=== PATIENT | female | born 1980 | race Caucasian/White ===

== ENCOUNTER 2025-10-01 18:14 | Emergency (ER) | payer BC, SELFPAY ==
[2025-10-01] VITALS (33 sets, daily range): BP systolic 107–154; BP diastolic 67–89; PULSE 72–112; RESP 14–34; TEMP 36.6–37.1; O2SAT 81–99
--- NOTE | 2025-10-01 18:15 | RT.EKG_ITS ---
APPROVED REPORT Exam: Resting ECG Reason for Exam: chest pin Patient Location: E HR:95 bpm ECG Measurements Heart Rate 95 AXIS AK 135 P 41 QRSd 99 QRS 68 QT 349 T 20 QTc 439 Conclusion Sinus rhythm...normal P axis, V-rate 60- 99 No STEMI
[2025-10-01 18:54] LABS: Abs Immature Grans 0.02 10^3/uL (0.0-0.06); HCT 39.5 % (36.0-46.0); HGB 13.0 g/dL (11.2-15.7); Immature Grans % 0.2 %; MCH 27.6 pg (27.0-33.0); MCHC 32.9 % (32.0-36.0); MCV 84 fL (80-95); MPV 9.1 fL (8.0-11.0); Platelet Count 306 10^3/uL (130-400); RBC 4.71 10^6/uL (3.93-5.22); RDW 13.1 % (11.7-14.6); RDW-SD 40.4 fL; WBC 8.40 10^3/uL (4.4-10.8)
[2025-10-01] MEDS: ACETAMINOPHEN 1,000 MG/100 ML BAG 400 MG IVPB (19:09)
[2025-10-01] MEDS: Normal Saline 1,000 ML 1000 ML IV (19:09)
[2025-10-01] MEDS: Ondansetron 4 MG/2 ML VIAL IVP ×2 (19:10→21:53)
[2025-10-01 19:18] LABS: HCG Qual (Serum) Negative
[2025-10-01 19:22] LABS: Lipase 31 U/L (<53); Magnesium 1.8 mg/dL (1.6-2.6)
[2025-10-01 19:23] LABS: ALT 28 U/L (10-49); AST 20 U/L (<34); Albumin 4.4 g/dL (3.2-5.0); Alkaline Phosphatase 84 U/L (46-116); Anion Gap 9.6 mmol/L (3-11); BUN 16 mg/dL (9-23); Bilirubin, Total 0.6 mg/dL (0.2-1.2); CO2 24.4 mmol/L (20.0-31.0); Calcium 8.8 mg/dL (8.3-10.6); Chloride 106 mmol/L (98-107); D-Dimer 548 ng/mlFEU (<500); Glucose 116 mg/dL (74-106); Potassium 3.7 mmol/L (3.5-5.1); Sodium 140 mmol/L (136-145); Total Protein 7.5 g/dL (5.7-8.2)
[2025-10-01 19:25] LABS: Troponin I < 3 ng/L (<35)
[2025-10-01 19:32] LABS: COVID-19 PCR Negative (Negative); RSV PCR Negative (Negative)
--- NOTE | 2025-10-01 19:53 | DI.RAD_ITS ---
Exam(s) XR PORTABLE CHEST AP EXAM: XR PORTABLE CHEST AP CLINICAL HISTORY: chest pain TECHNIQUE: 2D digital imaging was performed. COMPARISON: No exams were available for comparison FINDINGS: LUNGS: Clear. No pleural abnormality seen. HEART: Normal size. AORTA: Normal diameter. BONES: Unremarkable for age. Soft tissues: Unremarkable. IMPRESSION: No acute findings. The preliminary [facility] report was reviewed. DATA REPOSITORY: RADIATION DOSE DELIVERED:
--- NOTE | 2025-10-01 20:00 | DI.[facility]AD_ITS ---
PROCEDURE INFORMATION: Exam: XR Chest Exam date and time: 10/01/2025 19:32 Age: 44 years old Clinical indication: Chest pressure; Chest pain TECHNIQUE: Imaging protocol: Radiologic exam of the chest. Views: 1 view. COMPARISON: No relevant prior studies available. FINDINGS: Lungs: No consolidation. Pleural spaces: No pleural effusion. No pneumothorax. Heart/Mediastinum: No cardiomegaly. Bones/joints: No acute fracture. IMPRESSION: Negative portable chest. Dictated and Authenticated by: Ellyn Anguiano MD. Orderin Amarilis Zarate MD
--- NOTE | 2025-10-01 20:07 | ED.GENADUL_ITS ---
Discharge Plan Disposition Patient Disposition: Home Discharge Details Clinical Impression: Nausea and vomiting, Atypical chest pain, Thyroid nodule Primary Care Provider: Sera,Local ED Provider: Elliot Olmos Home Meds and New Rx's Prescriptions: New ondansetron 4 mg tablet,disintegrating 4 mg PO Q6H PRNQty: 20 0RF No Action lisinopril 20 mg tablet 20 mg PO DAILY fluticasone propionate 110 mcg/actuation HFA aerosol inhaler 2 inh inhalation DAILY AM Discharge Instructions Instructions: Thyroid nodules, Chest Pain, Adult ED, Nausea and Vomiting, Adult ED Additional Instructions: Please follow-up with your primary care provider regarding your visit to the emergency department today. Be sure to discuss results of all test performed here today to include radiology, and laboratory testing as well as results for any pending cultures. Of note, it was incidentally noted that your thyroid had to very small nodules which statistically are unlikely to represent any significant pathology however would recommend following up with your doctor to discuss if any future surveillance is indicated. Should your symptoms worsen, or if you develop new concerning symptoms, please return immediately emergency department for further evaluation. Stand Alone Forms: Portal Information HPI General Date/Time Provider Initiated Documentation: 10/01/25 18:23 . HPI Narrative: MDM/Narrative: 44-year-old female presents for evaluation of chest pain rating to the back with associated nausea and vomiting times today. Vital signs are notable for tachycardia, physical exam is otherwise unremarkable. Given tachycardia with chest pain rating to back concern for both PE and aortic pathology, less likely ACS given atypical presentation. However patient lacks risk factors for the significant disease processes so we will also consider other possible causes of chest pain such as pneumothorax, pneumonia, viral syndrome. Will obtain screening labs, EKG and negative D-dimer is positive for CAT scan. ED course: Screening labs are unremarkable other than a D-dimer which is elevated, will obtain CT of the chest abdomen pelvis for further evaluation CT imaging was unremarkable, patient notes significant improvement following ministration of fluids and Zofran, heart rate is now normalized, no significant complaints at this time will discharge prescription for Zofran and encouragement to follow-up with primary care. Disposition: Home HPI: 44-year-old female past medical history of hypertension, presents evaluation of chest pain with associated vomiting which began today. Patient states that she felt somewhat nauseous while going shopping with her and when she entered the supermarket she had to run back to the car and vomit. Since then she has noted chest pain which radiates to her back, denies any associated shortness of breath, fever, chills, abdominal pain or any other new or concerning symptoms. ROS: Negative besides as mentioned above Exam: Gen: A&O NAD HEENT: NCAT, EOMI, not icteric. External ears normal. No rhinorrhea. Moist mucous membranes. Neck: Supple, full range of motion, no observable masses, No meningeal sign. Lungs: No Respiratory distress. CV: RRR, no edema. Abdomen: Soft, nondistended, No rebound tenderness. MSK: No joint swelling, no redness. Skin: No rashes, petechiae, lesions. Normal color per patient. Neuro: Normal Gait, Grossly intact. Psych: Appropriate for situation. Rhythm: NSR Rate: 95 [place]: Normal axis Intervals: Normal intervals Other findings: No acute ST segment or T wave changes to suggest acute ischemia. Labs: Laboratory Tests Range/Units 10/01/25 10/01/25 10/01/25 18:37 18:45 19:51 WBC (4.4-10.8) 10^3/uL 8.40 RBC (3.93-5.22) 10^6/uL 4.71 Hgb (11.2-15.7) g/dL 13.0 Hct (36.0-46.0) % 39.5 MCV (80-95) fL 84 MCH (27.0-33.0) pg 27.6 MCHC (32.0-36.0) % 32.9 RDW (11.7-14.6) % 13.1 Plt Count (130-400) 10^3/uL 306 MPV (8.0-11.0) fL 9.1 Immature Gran % % 0.2 Neutrophils % % 83.8 Lymphocytes % % 8.9 Monocytes % % 4.5 Eosinophils % % 2.4 Basophils % % 0.2 Nucleated RBC % (0.0-0.3) % 0.0 Absolute Neutrophils (1.2-6.7) 10^3/uL 7.03 H Absolute Lymphocytes (1.2-3.4) 10^3/uL 0.75 L Absolute Monocytes (0.1-0.8) 10^3/uL 0.38 Absolute Eosinophils (0.0-0.7) 10^3/uL 0.20 Absolute Basophils (0.0-0.2) 10^3/uL 0.02 D-Dimer (<500) ng/mlFEU 548 H VBG Lactate (<or=2.0) mmol/L 1.1 Sodium (136-145) mmol/L 140 Potassium (3.5-5.1) mmol/L 3.7 Chloride (98-107) mmol/L 106 Carbon Dioxide (20.0-31.0) mmol/L 24.4 Anion Gap (3-11) mmol/L 9.6 BUN (9-23) mg/dL 16 Creatinine (0.55-1.02) mg/dL 0.77 Est GFR (CKD-EPI 2020) (mL/min/1.73m2) 81.06 Glucose (74-106) mg/dL 116 H Calcium (8.3-10.6) mg/dL 8.8 Magnesium (1.6-2.6) mg/dL 1.8 Total Bilirubin (0.2-1.2) mg/dL 0.6 AST (<34) U/L 20 ALT (10-49) U/L 28 Alkaline Phosphatase (46-116) U/L 84 Troponin I (<35) ng/L < 3 < 3 NT-Pro-B Natriuret Pep (<300) pg/mL < 35 Total Protein (5.7-8.2) g/dL 7.5 Albumin (3.2-5.0) g/dL 4.4 Lipase (<53) U/L 31 Serum HCG, Qual Negative Urine Color (Yellow) Urine Clarity (Clear) Urine pH (5-8) Ur Specific [place] (1.005-1.025) Urine Protein (Neg-Trace) mg/dL Urine Ketones (Negative) mg/dL Urine Blood (Negative) Urine Nitrite (Negative) Urine Bilirubin (Negative) Urine Urobilinogen (Up to 0.2) mg/dL Ur Leukocyte Esterase (Negative) Urine Glucose (Negative) mg/dL COVID-19 Source Nasopharynx SARS-CoV-2 (PCR) (Negative) Negative Influenza Type A (PCR) (Negative) Negative Influenza Type B (PCR) (Negative) Negative RSV (PCR) (Negative) Negative Range/Units 10/01/25 20:03 WBC (4.4-10.8) 10^3/uL RBC (3.93-5.22) 10^6/uL Hgb (11.2-15.7) g/dL Hct (36.0-46.0) % MCV (80-95) fL MCH (27.0-33.0) pg MCHC (32.0-36.0) % RDW (11.7-14.6) % Plt Count (130-400) 10^3/uL MPV (8.0-11.0) fL Immature Gran % % Neutrophils % % Lymphocytes % % Monocytes % % Eosinophils % % Basophils % % Nucleated RBC % (0.0-0.3) % Absolute Neutrophils (1.2-6.7) 10^3/uL Absolute Lymphocytes (1.2-3.4) 10^3/uL Absolute Monocytes (0.1-0.8) 10^3/uL Absolute Eosinophils (0.0-0.7) 10^3/uL Absolute Basophils (0.0-0.2) 10^3/uL D-Dimer (<500) ng/mlFEU VBG Lactate (<or=2.0) mmol/L Sodium (136-145) mmol/L Potassium (3.5-5.1) mmol/L Chloride (98-107) mmol/L Carbon Dioxide (20.0-31.0) mmol/L Anion Gap (3-11) mmol/L BUN (9-23) mg/dL Creatinine (0.55-1.02) mg/dL Est GFR (CKD-EPI 2020) (mL/min/1.73m2) Glucose (74-106) mg/dL Calcium (8.3-10.6) mg/dL Magnesium (1.6-2.6) mg/dL Total Bilirubin (0.2-1.2) mg/dL AST (<34) U/L ALT (10-49) U/L Alkaline Phosphatase (46-116) U/L Troponin I (<35) ng/L NT-Pro-B Natriuret Pep (<300) pg/mL Total Protein (5.7-8.2) g/dL Albumin (3.2-5.0) g/dL Lipase (<53) U/L Serum HCG, Qual Urine Color (Yellow) Yellow Urine Clarity (Clear) Clear Urine pH (5-8) 5.5 Ur Specific Hunter (1.005-1.025) 1.025 Urine Protein (Neg-Trace) mg/dL Negative Urine Ketones (Negative) mg/dL 15 H Urine Blood (Negative) Negative Urine Nitrite (Negative) Negative Urine Bilirubin (Negative) Negative Urine Urobilinogen (Up to 0.2) mg/dL 0.2 Ur Leukocyte Esterase (Negative) Negative Urine Glucose (Negative) mg/dL Negative COVID-19 Source SARS-CoV-2 (PCR) (Negative) Influenza Type A (PCR) (Negative) Influenza Type B (PCR) (Negative) RSV (PCR) (Negative) Radiology: PROCEDURE INFORMATION: Exam: XR Chest Exam date and time: 10/01/2025 19:32 Age: 44 years old Clinical indication: Chest pressure; Chest pain TECHNIQUE: Imaging protocol: Radiologic exam of the chest. Views: 1 view. COMPARISON: No relevant prior studies available. FINDINGS: Lungs: No consolidation. Pleural spaces: No pleural effusion. No pneumothorax. Heart/Mediastinum: No cardiomegaly. Bones/joints: No acute fracture. IMPRESSION: Negative portable chest. Thank you for allowing us to participate in the care of your patient. Dictated and Authenticated by: Ellyn Anguiano MD PROCEDURE INFORMATION: Exam: CTA Chest With Contrast CTA Abdomen and Pelvis With Contrast Exam date and time: 10/01/2025 20:56 Age: 44 years old Clinical indication: Chest pressure; Prior surgery; Surgery date: 6+ months; Surgery type: Hysterectomy; D-dimer +, cp and back pain TECHNIQUE: Imaging protocol: Computed tomographic angiography of the chest with contrast. Exam focused on the arteries. Computed tomographic angiography of the abdomen and pelvis with contrast. Exam focused on the arteries. 3D rendering (Not supervised by radiologist): MIP and/or 3D reconstructed images were created by the technologist. Radiation optimization: All CT scans at this facility use at least one of these dose optimization techniques: automated exposure control; mA and/or kV adjustment per patient size (includes targeted exams where dose is matched to clinical indication); or iterative reconstruction. Contrast material: [id number]; Contrast volume: 100 ml; Contrast route: INTRAVENOUS (IV); COMPARISON: CR XR PORTABLE CHEST AP 10/01/2025 19:32 FINDINGS: VASCULATURE: Pulmonary arteries: No pulmonary emboli. Aorta: No aortic aneurysm. No aortic dissection. Celiac and mesenteric arteries: No occlusion or significant stenosis. Renal arteries: No occlusion or significant stenosis. Right iliac arteries: No occlusion or significant stenosis. OMAROSORIO Preliminary Radiology Report KENNEL OPERATOR (QA) DISCREPANCY? If there is a discrepancy between the preliminary and final interpretation, kristie reed notify [employer] via [email or web address]. If you do not have access to our QA portal, call our QA team at [phone] CONFIDENTIALITY STATEMENT This report is intended only for the use of the referring physician, and only in accordance with law, If you received this in error, call [phone] Page 2 of 2 Left iliac arteries: No occlusion or significant stenosis. Thyroid: Subcentimeter bilateral thyroid nodules are statistically likely benign. CHEST: Trachea: Minimal scattered air trapping in the lungs may reflect small airways disease. Lungs: No airspace consolidation. Pleural spaces: No pneumothorax. No pleural effusion. Heart: No cardiomegaly. No pericardial effusion. ABDOMEN AND PELVIS: Liver: Fatty liver with no mass lesions. Gallbladder and biliary ducts: Cholecystectomy. No significant biliary dilation or radiopaque stones in the biliary tree. Pancreas: No mass. No ductal dilation. Spleen: No splenomegaly. Adrenal glands: No mass. Kidneys and ureters: No solid mass. No hydronephrosis. Stomach and bowel: No obstruction. No mucosal thickening. Appendix: No evidence of appendicitis. Intraperitoneal space: No free air. No significant fluid collection. Urinary bladder: No mass. Reproductive: Hysterectomy. Lymph nodes: No enlarged lymph nodes. Bones/joints: No acute fracture or subluxation. Soft tissues: Prominent subcutaneous fat. IMPRESSION: 1. No acute findings. 2. Incidental findings as described. Thank you for allowing us to participate in the care of your patient. Dictated and Authenticated by: Ellyn Anguiano MD Related Data Home Medications ?Medication ?Instructions ?Recorded ?Confirmed fluticasone propionate 110 2 inh inhalation DAILY AM 1 12/02/24 10/01/25 mcg/actuation HFA aerosol inhaler lisinopril 20 mg tablet 20 mg PO DAILY 10/01/2509/20 ondansetron 4 mg disintegrating 4 mg PO Q6H PRN #20 ta bs 10/01/25 tablet Previous Rx's ?Medication ?Instructions ?Recorded ondansetron 4 mg disintegrating 4 mg PO Q6H PRN #20 ta bs 10/01/25 tablet Allergies Allergy/AdvReac Type Severity Reaction Status Date / Time Sulfa (Sulfonamide Allergy Severe Anaphylaxis Verified 10/01/25 18:20 Antibiotics) Penicillins AdvReac Intermediate Psychosis Verified 10/01/25 18:20 General Stated Complaint: Chest Pain ESTER: 3 Course Vital Signs Vital signs: Vital Signs Temperature 36.6 C 10/01/25 18:16 Pulse 102 H 10/01/25 18:16 Respiratory Rate 17 10/01/25 18:16 Blood Pressure 121/88 10/01/25 18:16 Pulse Oximetry 97 10/01/25 18:16 Temperature 36.6 C 10/01/25 18:16 Temperature Source Skin 10/01/25 18:16 Pulse 94 H 10/01/25 20:00 Pulse 93 H 10/01/25 20:00 Respiratory Rate 20 10/01/25 20:00 Respiratory Effort Normal, Non-Labored 10/01/25 18:41 Respiratory Depth Normal 10/01/25 18:41 Respiratory Pattern Normal 10/01/25 18:41 Blood Pressure 120/71 10/01/25 20:00 Blood Pressure Mean 89 10/01/25 20:00 Blood Pressure Position Sitting 10/01/25 18:16 Pulse Oximetry 97 10/01/25 20:00 Oxygen Delivery Method Room Air 10/01/25 18:16 Oxygen Flow Rate 0 10/01/25 18:16 Pain Level 5 10/01/25 18:16 Lab/Test Results Lab/Test Results: Laboratory Tests Range/Units 10/01/25 10/01/25 18:37 18:45 WBC (4.4-10.8) 10^3/uL 8.40 RBC (3.93-5.22) 10^6/uL 4.71 Hgb (11.2-15.7) g/dL 13.0 Hct (36.0-46.0) % 39.5 MCV (80-95) fL 84 MCH (27.0-33.0) pg 27.6 MCHC (32.0-36.0) % 32.9 RDW (11.7-14.6) % 13.1 Plt Count (130-400) 10^3/uL 306 MPV (8.0-11.0) fL 9.1 Immature Gran % % 0.2 Neutrophils % % 83.8 Lymphocytes % % 8.9 Monocytes % % 4.5 Eosinophils % % 2.4 Basophils % % 0.2 Nucleated RBC % (0.0-0.3) % 0.0 Absolute Neutrophils (1.2-6.7) 10^3/uL 7.03 H Absolute Lymphocytes (1.2-3.4) 10^3/uL 0.75 L Absolute Monocytes (0.1-0.8) 10^3/uL 0.38 Absolute Eosinophils (0.0-0.7) 10^3/uL 0.20 Absolute Basophils (0.0-0.2) 10^3/uL 0.02 D-Dimer (<500) ng/mlFEU 548 H VBG Lactate (<or=2.0) mmol/L 1.1 Sodium (136-145) mmol/L 140 Potassium (3.5-5.1) mmol/L 3.7 Chloride (98-107) mmol/L 106 Carbon Dioxide (20.0-31.0) mmol/L 24.4 Anion Gap (3-11) mmol/L 9.6 BUN (9-23) mg/dL 16 Creatinine (0.55-1.02) mg/dL 0.77 Est GFR (CKD-EPI 2020) (mL/min/1.73m2) 81.06 Glucose (74-106) mg/dL 116 H Calcium (8.3-10.6) mg/dL 8.8 Magnesium (1.6-2.6) mg/dL 1.8 Total Bilirubin (0.2-1.2) mg/dL 0.6 AST (<34) U/L 20 ALT (10-49) U/L 28 Alkaline Phosphatase (46-116) U/L 84 Troponin I (<35) ng/L < 3 NT-Pro-B Natriuret Pep (<300) pg/mL < 35 Total Protein (5.7-8.2) g/dL 7.5 Albumin (3.2-5.0) g/dL 4.4 Lipase (<53) U/L 31 Serum HCG, Qual Negative COVID-19 Source Nasopharynx SARS-CoV-2 (PCR) (Negative) Negative Influenza Type A (PCR) (Negative) Negative Influenza Type B (PCR) (Negative) Negative RSV (PCR) (Negative) Negative PFSH All Active Problems (Updated 10/01/25 @ 23:20 by Elliot Olmos MD) Thyroid nodule (Acute) Atypical chest pain (Acute) Nausea and vomiting (Acute) Social History Smoking/Tobacco Use Status: Never Smoking risk assessment performed?: Yes Alcohol Intake: current Alcohol Intake frequency: a few times a month Drug use: Never Substance use type: does not use Do you feel safe at home: Yes Do you feel safe in your relationship?: Yes
[2025-10-01 20:23] LABS: Glucose Negative (Negative)
[2025-10-01 20:24] LABS: Troponin I < 3 ng/L (<35)
[2025-10-01] MEDS: Normal Saline - Diluent 50 ML VIAL IJ (21:10)
[2025-10-01] MEDS: Omnipaque 350 MG/ML 100 ML BTL IJ (21:10)
[2025-10-01] MEDS: Normal Saline Flush 10 ML SYR IVP (21:11)
--- NOTE | 2025-10-01 21:25 | DI.[facility]_ITS ---
PROCEDURE INFORMATION: Exam: CTA Chest With Contrast CTA Abdomen and Pelvis With Contrast Exam date and time: 10/01/2025 20:56 Age: 44 years old Clinical indication: Chest pressure; Prior surgery; Surgery date: 6+ months; Surgery type: Hysterectomy; D-dimer +, cp and back pain TECHNIQUE: Imaging protocol: Computed tomographic angiography of the chest with contrast. Exam focused on the arteries. Computed tomographic angiography of the abdomen and pelvis with contrast. Exam focused on the arteries. 3D rendering (Not supervised by radiologist): MIP and/or 3D reconstructed images were created by the technologist. Radiation optimization: All CT scans at this facility use at least one of these dose optimization techniques: automated exposure control; mA and/or kV adjustment per patient size (includes targeted exams where dose is matched to clinical indication); or iterative reconstruction. Contrast material: [id number]; Contrast volume: 100 ml; Contrast route: INTRAVENOUS (IV); COMPARISON: CR XR PORTABLE CHEST AP 10/01/2025 19:32 FINDINGS: VASCULATURE: Pulmonary arteries: No pulmonary emboli. Aorta: No aortic aneurysm. No aortic dissection. Celiac and mesenteric arteries: No occlusion or significant stenosis. Renal arteries: No occlusion or significant stenosis. Right iliac arteries: No occlusion or significant stenosis. Left iliac arteries: No occlusion or significant stenosis. Thyroid: Subcentimeter bilateral thyroid nodules are statistically likely benign. CHEST: Trachea: Minimal scattered air trapping in the lungs may reflect small airways disease. Lungs: No airspace consolidation. Pleural spaces: No pneumothorax. No pleural effusion. Heart: No cardiomegaly. No pericardial effusion. ABDOMEN AND PELVIS: Liver: Fatty liver with no mass lesions. Gallbladder and biliary ducts: Cholecystectomy. No significant biliary dilation or radiopaque stones in the biliary tree. Pancreas: No mass. No ductal dilation. Spleen: No splenomegaly. Adrenal glands: No mass. Kidneys and ureters: No solid mass. No hydronephrosis. Stomach and bowel: No obstruction. No mucosal thickening. Appendix: No evidence of appendicitis. Intraperitoneal space: No free air. No significant fluid collection. Urinary bladder: No mass. Reproductive: Hysterectomy. Lymph nodes: No enlarged lymph nodes. Bones/joints: No acute fracture or subluxation. Soft tissues: Prominent subcutaneous fat. IMPRESSION: 1. No acute findings. 2. Incidental findings as described. Dictated and Authenticated by: Ellyn Anguiano MD. Orderin Amarilis Zarate MD
--- NOTE | 2025-10-01 21:27 | DI.CT_ITS ---
Exam(s) CT THORAX ABD/PEL CTA EXAM: CT THORAX ABD/PEL CTA CLINICAL HISTORY: D-dimer +, CP and back pain. TECHNIQUE: Imaging Protocol: Axial computed tomography images with coronal and sagittal reformatted images were created and reviewed. Computer aided detection (CAD) was utilized. CONTRAST MATERIAL: Intravenous: Omnipaque 350 Contrast volume:100 ml Oral: yes / no Intravenous: Omnipaque 350 Contrast volume:100 ml COMPARISON: CT RENAL COLIC WO CONTRAST from 06/17/2011 CR,XR XR PORTABLE CHEST AP from 10/01/2025 FINDINGS: CHEST: Pulmonary parenchyma: No consolidation. No dominant measurable mass. Tracheobronchial tree: No bronchiectasis. No mucous plugging.No bronchial wall thickening. Pleura: No effusion or pneumothorax. Mediastinum: Within normal limits. Pulmonary arteries: No visible emboli. Cardiovascular: The heart size is normal. No coronary artery calcifications are seen. No pericardial effusion. Thoracic aorta non-dilated. No atherosclerotic changes. Bones: Unremarkable for age. No lytic or blastic lesions. No compression fractures. Soft tissues: Unremarkable. ABDOMEN and PELVIS: Liver: Enlarged at 20 cm in length. Moderate hepatic steatosis. No suspicious mass. Gallbladder and biliary tract: Cholecystectomy. No biliary dilatation. Pancreas: Normal density, no abnormal calcifications or inflammatory process. Spleen: Normal. Kidneys: Normal size, contour and axis. No radiodense stones. No obstructive uropathy. No suspicious masses seen. Adrenal glands: No masses seen. Vasculature: Abdominal aorta non-dilated. No significant atherosclerotic changes. The celiac axis, SMA and renal arteries appear normal. No atherosclerotic changes. Iliac and femoral arteries are normal in diameter and show no calcification or aneurysm. Lymph nodes: Within normal limits. Soft tissues: Unremarkable. Bladder: Unremarkable. Bowel: No obstruction or bowel wall thickening. Normal quantity of stool. The appendix is normal. Peritoneal cavity: No ascites. No focal collection. No mesenteric inflammatory response. No free air. Bones: Unremarkable for age. Reproductive organs: Hysterectomy. IMPRESSION: No acute abnormality in the chest, abdomen or pelvis. The liver is enlarged and shows moderate hepatic steatosis. The preliminary [facility] report was reviewed. RADIATION DOSE DELIVERED: Total DLP DATA REPOSITORY: All CT scans at this facility are submitted to the National Radiology Data Registry (NRDR) Dose Index Registry (DIR) with the [employer] (ACR). RADIATION OPTIMIZATION: All CT scans at this facility use at least one of these dose optimization techniques: automated exposure control; mA and/or kV adjustment per patient size (includes targeted exams where dose is matched to clinical indication); or iterative reconstruction.
[2025-10-01] MEDS: Lactated Ringers 1,000 ML 1000 ML IV (21:45)
[2025-10-01] MEDS: Ketorolac 15 MG/ML VIAL IVP (21:46)
== END 2025-10-01 22:37 | disposition home or self-care (01) ==
PROVIDERS: Emergency Provider General Practice
DX: R11.2 Nausea with vomiting, unspecified (principal); R07.89 Other chest pain; E04.1 Nontoxic single thyroid nodule; I10 Essential (primary) hypertension
CPT/HCPCS: 36415; 71275; 80053; 83690; 87637; 93005; 96361; 96365; 96375; 96376; 99285; 71045; 74174; 81003; 83605; 83735; 83880; 84484; 84703; 85025; 85379; 93010; J0131; J1885; J2405; J3490